=== PATIENT | male | born 1945 | race Caucasian/White ===

== ENCOUNTER → 2018-11-16 | Outpatient (CLI) | payer MEDICARE, BC ==
--- NOTE | 2018-11-16 17:55 | KCIC ---
MR of the right knee HISTORY: Right knee pain lateral and posterior for 3 months. TECHNIQUE: Routine multiplanar sequences are obtained. FINDINGS: Degenerative tear of the medial meniscus. No evidence of lateral meniscal tear. Anterior cruciate ligament is thickened and hyperintense compatible with mucinous degeneration, no evidence of disruption. Subligamentous cystic change and edema at the distal femur and proximal tibia. Posterior cruciate ligament is intact. Medial collateral ligament is intact. Iliotibial band unremarkable. Fibular collateral ligament, biceps femoris tendon and popliteus tendon are intact. Extensor mechanism intact. Large joint effusion with evidence of synovitis. No significant Marc's cyst. Severe cartilage loss at the medial joint compartment with flattening of the subchondral bone. Mild degenerative changes at the lateral joint compartment. Degenerative changes at the patellofemoral joint with severe cartilage loss at the lower femoral trochlea. No acute fracture. No aggressive bone destruction. Mild generalized soft tissue edema. IMPRESSION: 1. Medial meniscal tear. 2. 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 3. Anterior cruciate ligament signal, compatible with degeneration. Electronically signed by: Bolivar Borges MD (11/16/2018 5:52 PM) [id number]
== END | disposition home or self-care (01) ==
LOC: KCIC MRI 13:03
PROVIDERS: ATTEND Family Medicine
DX: S83.241A Other tear of medial meniscus, current injury, right knee, initial encounter (principal); M17.11 Unilateral primary osteoarthritis, right knee; M65.861 Other synovitis and tenosynovitis, right lower leg; M25.461 Effusion, right knee; X58.XXXA Exposure to other specified factors, initial encounter; Y93.89 Activity, other specified; Y92.89 Other specified places as the place of occurrence of the external cause; Y99.8 Other external cause status
CPT/HCPCS: 73721